=== PATIENT | female | born 1990 | race Asian ===

== ENCOUNTER → 2020-05-19 | Outpatient (CLI) | payer BC ==
--- NOTE | 2020-05-20 08:17 | CARD ---
MR#: [id number] Date of Study: 05/19/2020 Ordering Physician: MAURICIO KAUR, Referring Physician: MAURICIO KAUR, Tech: Laney Lopez APPROVED REPORT EXAM: Two-dimensional and M-mode echocardiogram with Doppler and color Doppler. Other Information Quality : AverageHR: 66bpm INDICATION Murmur Surgery/Intervention Post cardiac surgery 2D DIMENSIONS RVDd2.8 (2.9-3.5cm)Left Atrium(2D)3.2 (1.6-4.0cm) IVSd0.8 (0.7-1.1cm)Aortic Root(2D)2.7 (2.0-3.7cm) LVDd4.5 (3.9-5.9cm)LVOT Diameter1.9 (1.8-2.4cm) PWd0.9 (0.7-1.1cm)LVDs2.9 (2.5-4.0cm) FS (%) 35.7 %SV61.3 ml LVEF(%)65.3 (>50%) Aortic Valve AoV Peak Aj.107.8cm/sAoV VTI23.2cm AO Peak GR.4.7mmHgLVOT Peak Aj.84.3cm/s LVOT VTI 19.89cmAO Mean GR.3mmHg CHERRY (VMAX)1.89kf0KXW (VTI)2.45cm2 Mitral Valve MV E Gnfhyxbr47.4cm/sMV DECEL DAKQ732hn MV A Okhrqrpi24.4cm/sMV E Mean Gr.1mmHg MV YLX38goC/A Ratio1.5 MVA (PHT)4.49cm2 TDI E/Lateral E'4.9E/Medial E'5.9 Pulmonary Valve PV Peak Muhkjvlr416.0cm/sPV Peak Grad.5mmHg Tricuspid Valve TR P. Jeplggcy358ot/sRAP [id number] TR Peak Gr.57iaQeZPRV81ikIk Pulmonary Vein S1 Wfyumrna89.6cm/sD2 Fepgevoy03.1cm/s PVa juhxirko448ztea LEFT VENTRICLE The left ventricle is normal size. There is normal left ventricular wall thickness. The left ventricu lar systolic function is normal and the ejection fraction is within normal range. The Ejection Fracti on is 55-60%. There is normal LV segmental wall motion. The left ventricular diastolic function and f illing is normal for age. There is likely a prior VSD closure device noted (Probable amplatzer plug) in the perimembranous portion of the septum. RIGHT VENTRICLE The right ventricle is normal size. There is normal right ventricular wall thickness. The right ventr icular systolic function is normal. ATRIA The left atrium size is normal. The right atrium size is normal. The interatrial septum is intact wit h no evidence for an atrial septal defect or patent foramen ovale as noted on 2-D or Doppler imaging. AORTIC VALVE The aortic valve is normal in structure and function. Doppler and Color Flow revealed no significant aortic regurgitation. There is no significant aortic valvular stenosis. MITRAL VALVE The mitral valve is normal in structure and function. There is no evidence of mitral valve prolapse. There is no mitral valve stenosis. TRICUSPID VALVE The tricuspid valve is normal in structure and function. Doppler and Color Flow revealed trace tricus pid regurgitation with an estimated PAP of 28 mmHg. There is no tricuspid valve stenosis. PULMONIC VALVE The pulmonary valve is normal in structure and function. Doppler and Color Flow revealed trace pulmon ic valvular regurgitation. There is no pulmonic valvular stenosis. GREAT VESSELS The aortic root is normal in size. The IVC is dilated. PERICARDIAL EFFUSION There is no evidence of significant pericardial effusion. Critical Notification Critical Value: No <Conclusion> The left ventricular systolic function is normal and the ejection fraction is within normal range. Th e Ejection Fraction is 55-60%. There is normal LV segmental wall motion. There is likely a prior VSD closure device noted (Probable amplatzer plug) in the perimembranous port ion of the septum. Signed by : Francis Menezes, Electronically Approved : 05/20/2020 08:16:40
== END | disposition home or self-care (01) ==
LOC: ECHO 15:19
PROVIDERS: ATTEND Internal Medicine Cardiovascular Disease
DX: R01.1 Cardiac murmur, unspecified (principal)
CPT/HCPCS: 93306